=== PATIENT | female | born 1965 | race Two or more races ===

== ENCOUNTER → 2019-07-03 | Day surgery (SDC) | payer OTHER ==
[~2019-07-03] MED LIST: BUPROPION HCL100 MG PO; CALCIUM500 M2 PO; CLONAZEPAM2 MG PO; HORIZANT600 MG PO; PEPCID40 MG PO; PEXEVA10 MG PO; PREVACID30 M1 PO; SYNTHROID75 MCG PO; TOPROL XL50 M1 PO; ZOCOR40 MG PO
== END | disposition home or self-care (01) ==
LOC: ADM 06-28 09:00 → CIR.AMB 07:44 → EDBD 09:00 → CIR.AMB 11:30
DX: S63.591A Other specified sprain of right wrist, initial encounter (principal)

== ENCOUNTER → 2019-08-02 | Outpatient (CLI) | payer OTHER | END | disposition home or self-care (01) | LOC: RAD 10:01 | DX: M25.531 Pain in right wrist (principal) ==